=== PATIENT | male | born 1965 | race Caucasian/White ===

== ENCOUNTER 2018-10-23 01:27 | Inpatient (IN) | payer BC ==
[2018-10-23 01:31] VITALS: BMI 24.5
[2018-10-23] MEDS ORDERED: Sodium Chloride 0.9% 1,000 ML IV STA (02:40)
--- NOTE | 2018-10-23 02:40 | ED PDOC ---
Arrival/HPI - General Chief Complaint: Dizziness/Lightheaded Time Seen by Provider: 10/23/18 02:15 Historian: Patient - History of Present Illness Narrative History of Present Illness (Text): 10/23/18 02:38 Ian Park is a 52 year old male, with no significant past medical history, who presents to the Emergency department complaining of dizziness. Patient states he has been experiencing dizziness, described as room-spinning, since yesterday afternoon, worsening tonight. Patient notes he felt near- syncopal and had to lie down on the floor. Patient reports associated nausea and vomiting. Patient denies any fever, chills, chest pain, shortness of breath, diarrhea, urinary symptoms, back pain, neck pain, headache, or any other complaints. Symptom Onset: Gradual Symptom Course: Unchanged Activities at Onset: Light Context: Home Past Medical History - Provider Review Nursing Documentation Reviewed: Yes - Psychiatric Hx Substance Use: No - Anesthesia Hx Anesthesia: No Hx Anesthesia Reactions: No Hx Malignant Hyperthermia: No Family/Social History - Physician Review Nursing Documentation Reviewed: Yes Family/Social History: Unknown Family HX Smoking Status: Never Smoked Hx Alcohol Use: No Hx Substance Use: No Allergies/Home Meds Allergies/Adverse Reactions: Allergies No Known Allergies Allergy (Verified 10/23/18 01:31) Home Medications: Home Meds Medication Instructions Recorded Confirmed No Known Home Med 10/23/18 10/23/18 Review of Systems - Physician Review All systems were reviewed & negative as marked: Yes - Review of Systems Constitutional: Normal. absent: Fevers Eyes: Normal ENT: Normal Respiratory: Normal. absent: SOB, Cough Cardiovascular: Syncope (+near-syncopal). absent: Chest Pain Gastrointestinal: Nausea, Vomiting. absent: Diarrhea Genitourinary Male: Normal. absent: Dysuria, Frequency, Hematuria, Urinary Output Changes Musculoskeletal: Normal. absent: Back Pain, Neck Pain Skin: Normal. absent: Rash Neurological: Dizziness. absent: Headache Endocrine: Normal Hemo/Lymphatic: Normal Psychiatric: Normal Physical Exam Vital Signs Reviewed: Yes Vital Signs Temp Pulse Resp BP Pulse Ox 10/23/18 01:50 98.4 F 61 18 136/79 96 Temperature: Afebrile Blood Pressure: Normal Pulse: Regular Respiratory Rate: Normal Appearance: Positive for: Well-Appearing, Non-Toxic, Comfortable Pain Distress: None Mental Status: Positive for: Alert and Oriented X 3 - Systems Exam Head: Present: Atraumatic, Normocephalic Pupils: Present: PERRL Extroacular Muscles: Present: EOMI Conjunctiva: Present: Normal Ears: Present: Normal, NORMAL TM, Normal Canal. No: Erythema, TM Bulging, Fluid, TM Perf Mouth: Present: Moist Mucous Membranes Pharnyx: Present: Normal. No: ERYTHEMA, EXUDATE, TONSILS ENLARGED, Peritonsilar Swelling, Uvular Deviation, Muffled/Hoarse Voice, Strider, Soft Palate/Uvular Edema Nose (External): Present: Atraumatic Nose (Internal): Present: Normal Inspection Neck: Present: Normal Range of Motion. No: Meningeal Signs, MIDLINE TENDERNESS, Paraspinal Tenderness Respiratory/Chest: Present: Clear to Auscultation, Good Air Exchange. No: Respiratory Distress, Accessory Muscle Use Cardiovascular: Present: Regular Rate and Rhythm, Normal S1, S2. No: Murmurs Abdomen: No: Tenderness, Distention, Peritoneal Signs Back: Present: Normal Inspection. No: CVA Tenderness, Midline Tenderness, Paraspinal Tenderness Upper Extremity: Present: Normal Inspection. No: Cyanosis, Edema Lower Extremity: Present: Normal Inspection. No: Edema Neurological: Present: GCS=15, CN II-XII Intact, Speech Normal, Normal Sensory Function, Normal Cerebellar Funct, Memory Normal Skin: Present: Warm, Dry, Normal Color. No: Rashes Psychiatric: Present: Alert, Oriented x 3, Normal Insight, Normal Concentration Medical Decision Making ED Course and Treatment: 10/23/18 02:38 Impression: 52 year old male complaining of dizziness, near-syncope, and vomiting. Plan: -- CT Head w/o contrast -- EKG -- Chest X-ray -- Labs, cardiac enzymes -- IV fluids -- Antivert -- Zofran -- Pepcid -- Reassess and disposition Progress Notes: Reviewed EKG, NSR at [address]-segment elevations or depressions, no T-wave inversions, normal intervals. 10/23/18 03:30 Chest X-ray reviewed, shows no acute processes. 10/23/18 04:33 CT Head: Normal size of the ventricles and extra-axial spaces for the patient's age. Normal white matter tracts of the supratentorial brain. Normal basal ganglia and thalami. Normal brainstem. Normal cerebellum. There is no demonstrated extra-axial, intraparenchymal, or intraventricular hemorrhage. There are no findings of an acute ischemic infarction. Normal calvarium. There is no demonstrated fracture. Normal soft tissue structures. Normal visualized paranasal sinuses. IMPRESSION: Normal unenhanced CT scan of the brain. Electronically signed on Oct 23, 2018 3:55:15 AM EST by: Andre Weeks M.D., Certified by ABR, MSK, Neuroradiology 10/23/18 05:[address] Fay, who is aware and agrees with plan. Accepts pt in to her service. Pt will go to remote telemetry observation for intractable vertigo and near syncope. Requests Dr. Macias and Dr. Naqvi on consult - Lab Interpretations I have reviewed the lab results: Yes - RAD Interpretation Flight Engineer Instructor: ED Physician, Radiologist - EKG Interpretation Interpreted by ED Physician: Yes Type: 12 lead EKG - Scribe Statement The provider has reviewed the documentation as recorded by the Brendanibrosalind Andrea Provider Scribe Attestation: All medical record entries made by the Scribe were at my direction and personally dictated by me. I have reviewed the chart and agree that the record accurately reflects my personal performance of the history, physical exam, medical decision making, and the department course for this patient. I have also personally directed, reviewed, and agree with the discharge instructions and disposition. Disposition/Present on Arrival - Present on Arrival Any Indicators Present on Arrival: No History of DVT/PE: No History of Uncontrolled Diabetes: No Urinary Catheter: No History of Decub. Ulcer: No History Surgical Site Infection Following: None - Disposition Have Diagnosis and Disposition been Completed?: Yes Diagnosis: Near syncope, Vertigo Disposition: HOSPITALIZED Disposition Time: 06:09 Patient Plan: Observation Condition: STABLE Referrals: Bekah Fay MD [Primary Care Provider] - Follow up with primary Forms: [facility] ([place])
[2018-10-23 03:33] LABS: HEMOGLOBIN 14.5 g/dL (14.0-18.0); MEAN CELL VOLUME 95.2 fl (80.0-105.0); MEAN CORPUSCULAR HGB CONC 34.6 g/dl (31.0-37.0); MEAN PLATELET VOLUME 8.9 fl (7.0-11.0); RBC 4.4 10^6/uL (3.5-6.1); RED CELL DISTRIBUTION WIDTH 12.6 % (11.5-14.5); WHITE BLOOD COUNT 12.7 10^3/uL (4.5-11.0)
[2018-10-23 03:40] LABS: ALB/GLOB RATIO 1.1 (1.1-1.8); ALBUMIN 4.5 g/dL (3.0-4.8); ALT/SGPT 45 U/L (7-56); AST/SGOT 39 U/L (17-59); BLOOD UREA NITROGEN 18 mg/dL (7-21); CALCIUM 9.4 mg/dL (8.4-10.5); GFR NON-AFRICAN AMERICAN > 60
[2018-10-23 03:51] LABS: TROPONIN I < 0.01 ng/mL
[2018-10-23 04:40] LABS: CK-MB 3.1 ng/mL (0.0-3.6)
--- NOTE | 2018-10-23 08:46 | RAD ---
Date of service: 10/23/2018 PROCEDURE: CHEST RADIOGRAPH, 1 VIEW HISTORY: dizzy COMPARISON: None available. FINDINGS: LUNGS: The lungs are well inflated and clear. PLEURA: No pneumothorax or pleural effusion. CARDIOVASCULAR: The heart is normal in size. No aortic atherosclerotic calcifications present. OSSEOUS STRUCTURES: Within normal limits for the patient's age. VISUALIZED UPPER ABDOMEN: Normal. OTHER FINDINGS: None. IMPRESSION: No active pulmonary disease.
--- NOTE | 2018-10-23 10:15 | CT ---
Date of service: 10/23/2018 PROCEDURE: CT HEAD WITHOUT CONTRAST. HISTORY: Dizziness COMPARISON: None available. TECHNIQUE: Axial computed tomography images were obtained through the head/brain without intravenous contrast. Radiation dose: Total exam DLP = 870.66 mGy-cm. This CT exam was performed using one or more of the following dose reduction techniques: Automated exposure control, adjustment of the mA and/or kV according to patient size, and/or use of iterative reconstruction technique. FINDINGS: HEMORRHAGE: No intracranial hemorrhage. BRAIN: Carrion-white matter differentiation is preserved. There is no mass, mass effect or abnormal extra-axial fluid collection. There is no territorial infarction. The midline sagittal structures are normal. VENTRICLES: The ventricles are normal in size, shape and configuration. CALVARIUM: There is no calvarial fracture or extracranial soft tissue swelling. PARANASAL SINUSES: Predominantly clear. MASTOID AIR CELLS: Predominantly clear. OTHER FINDINGS: None. IMPRESSION: No acute intracranial abnormality. A preliminary report was provided by [employer].
--- NOTE | 2018-10-23 13:20 | CP.PCM.CON ---
History of Present Illness - History of Present Illness History of Present Illness: 52 y/o male with one day hx of dizziness/room spinning. Nausea. Denies change in hearing, denies prior hx. Pt feels dizziness has improved. Still dizzy with head movement to the left. Denies ear pain, denies recent URI Review of Systems - Constitutional Constitutional: As Per HPI - EENT Eyes: As Per HPI, Other (positve nystagmus to the right and upward/downward gaze) Nose/Mouth/Throat: As Per HPI - Cardiovascular Cardiovascular: As Per HPI - Respiratory Respiratory: As Per HPI - Gastrointestinal Gastrointestinal: As Per HPI - Genitourinary Genitourinary: As Per HPI - Reproductive: Male Reproductive:Male: As Per HPI - Musculoskeletal Musculoskeletal: As Per HPI - Integumentary Integumentary: As Per HPI - Neurological Neurological: As Per HPI - Psychiatric Psychiatric: As Per HPI - Endocrine Endocrine: As Per HPI - Hematologic/Lymphatic Hematologic: As Per HPI Past Patient History - Past Social History Smoking Status: Never Smoked - PSYCHIATRIC Hx Substance Use: No - SURGICAL HISTORY Hx Surgeries: No - ANESTHESIA Hx Anesthesia: No Hx Anesthesia Reactions: No Hx Malignant Hyperthermia: No Meds Allergies/Adverse Reactions: Allergies Allergy/AdvReac Type Severity Reaction Status Date / Time No Known Allergies Allergy Verified 10/23/18 01:31 - Medications Medications: Current Medications Acetaminophen (Tylenol 325mg Tab) 650 mg PO Q4H PRN PRN Reason: pain fever Famotidine (Pepcid) 40 mg PO HS MICKEY Meclizine HCl (Antivert) 25 mg PO TID MICKEY Ondansetron HCl (Zofran Inj) 4 mg IVP Q6 PRN PRN Reason: Nausea/Vomiting Physical Exam - Constitutional Appears: Well, Non-toxic - Head Exam Head Exam: ATRAUMATIC, NORMAL INSPECTION, NORMOCEPHALIC - Eye Exam Eye Exam: Nystagmus - ENT Exam ENT Exam: Mucous Membranes Moist, Normal Exam - Neck Exam Neck exam: Positive for: Normal Inspection - Respiratory Exam Respiratory Exam: NORMAL BREATHING PATTERN - Cardiovascular Exam Cardiovascular Exam: REGULAR RHYTHM - Neurological Exam Neurological exam: CN II-XII Intact, Oriented x3 Additional comments: Hallpike positive to left - Psychiatric Exam Psychiatric exam: Normal Affect, Normal Mood - Skin Skin Exam: Normal Color, Warm Results - Vital Signs Recent Vital Signs: Last Vital Signs Temp 98.4 F 10/23/18 01:50 Pulse 61 10/23/18 11:48 Resp 18 10/23/18 11:48 BP 145/85 10/23/18 11:48 Pulse Ox 96 10/23/18 11:48 - Labs Result Diagrams: 10/23/18 03:05 10/23/18 03:05 Labs: Laboratory Results - last 24 hr 10/23/18 10/23/18 03:05 03:05 WBC 12.7 H RBC 4.40 Hgb 14.5 Hct 41.9 L MCV 95.2 MCH 33.0 MCHC 34.6 RDW 12.6 Plt Count 193 MPV 8.9 Sodium 140 Potassium 4.1 Chloride 106 Carbon Dioxide 27 Anion Gap 11 BUN 18 Creatinine 0.8 Est GFR ( Amer) > 60 Est GFR (Non-Af Amer) > 60 Random Glucose 127 H Calcium 9.4 Total Bilirubin 0.5 AST 39 ALT 45 Alkaline Phosphatase 49 Lactate Dehydrogenase 542 Total Creatine Kinase 345 H CK-MB (CK-2) 3.1 CK-MB (CK-2) % Cancelled Troponin I < 0.01 Total Protein 8.5 H Albumin 4.5 Globulin 3.9 Albumin/Globulin Ratio 1.1 - Impressions Impression: CT wnl today Assessment & Plan (1) Near syncope Status: Acute (2) Vertigo Status: Acute (3) Labyrinthine dysfunction, left ear Status: Acute (4) Benign paroxysmal positional vertigo of left ear Status: Acute - Assessment and Plan (Free Text) Plan: meclizine and steroid treatment for presumed acute left viral labyrinthine dys function. F/u for audio/vng out patient. Continue meclizine rx with steroid upon discharge. Will reeval at your consent. - Date & Time Date: 10/23/18 Time: 13:00
[2018-10-23] MEDS ORDERED: Dexamethasone 4 mg/1 ml IVP STA (14:16)
--- NOTE | 2018-10-23 14:19 | CP.PCM.PCO ---
Assessment & Plan - Assessment and Plan (Free Text) Assessment: NEURO COMMUNICATION NOTE: IMPRESSION: ACUTE LABYRINTHINE DYSFUNCTION WITH BPPV 1/ C/W MECLIZINE 25 MG PO BID. 2. DEXAMETHSONE 4 MG IVP FOR ACUTE ONSET DIZZINESS. 3. OUTPT VESTIBULAR THERAPY AND F/W ENT. THANKS. CARLOS MICHELE.
--- NOTE | 2018-10-23 19:24 | CON ---
DATE: 10/23/2018 SUBJECTIVE: This is a 52-year-old male with past medical history, not significant, came here with the complaint of dizziness and described dizziness as spinning of the room, nausea, vomited many times yesterday and no facial asymmetry, called to evaluate the patient's past medical history not significant on examination. ALLERGY: NO KNOWN DRUG ALLERGY. REVIEW OF SYSTEM: A 10-point review of system was negative except dizziness. PHYSICAL EXAMINATION: VITAL SIGNS: Blood pressure 136/79. HEENT: Normocephalic and atraumatic. NECK: Supple. NEUROLOGIC: Awake, alert and oriented x3. Cranial nerve II through XII were tested. Pupil reactive. EOM intact. Visual mistry full. No facial asymmetry. Tongue midline. MOTOR EXAMINATION: Moves all the extremity equally. Tone normal. Deep tendon reflexes 1+. Both plantars are downgoing. Sensory appears intact. Cerebellar gait deferred. IMPRESSION: Vertigo, rule out vertebrobasilar ischemia, benign positional vertigo. CAT scan of the head was done which was reported negative and workup in progress. The patient is getting Antivert and Zofran. We will follow up. Markell Macias MD
--- NOTE | 2018-10-23 20:37 | CARD ---
APPROVED REPORT Date of service: 10/23/2018 EKG Measurement Heart [id number] NM [id number] [id number] <Conclusion> Normal sinus rhythm Normal ECG
[2018-10-23 23:31] VITALS: RESP 20
[2018-10-23] MEDS ORDERED: Pneumococcal 23-Valent Vaccine IM ONE (23:31)
[2018-10-23] MEDS ORDERED: Influenza Vaccine 60 mcg/0.5 mL SYR (4YR UP) IM ONE (23:31)
--- NOTE | 2018-10-24 01:35 | HP ---
DATE OF EXAM: 10/23/2018 The patient is a 52-year-old male. The patient was seen and examined at the bedside on 10/23/2018. CHIEF COMPLAINT: Dizziness, lightheadedness, near passing out. HISTORY OF PRESENT ILLNESS: Mr. Ian Cross is a 52-year-old male with no significant past medical history, came to the Emergency Department complaining of dizziness. The patient states that he has been experiencing dizziness as that room is spinning since day before admission, worsening last night. The patient noticed that left near syncope and had lie down on the floor. The patient reports associated nausea and vomiting. Denies any fever, chills, chest pain, shortness of breath, diarrhea, urinary symptoms, back pain, neck pain, headaches, dizziness or other complaints. PAST MEDICAL HISTORY: Not significant. FAMILY HISTORY: Father and mother, noncontributory. HABITS: Never smoked. No drugs. No ethanol. ALLERGIES: THE PATIENT IS NOT ALLERGIC WITH ANY MEDICATIONS. HOME MEDICATIONS: Denied. REVIEW OF SYSTEMS: The patient was seen and examined at the bedside in his room. He is lying down comfortably. No fever. No chills. No shortness of breath. No coughing. Having feeling of still syncope and passing out on movement. He is still having dizzy. No chest pain. No nausea. No vomiting at this moment. No dysuria, frequency or hematuria. No change in urinary output. No back pain, neck pain, no rash or swelling of the legs. PHYSICAL EXAMINATION VITAL SIGNS: Temperature 98.4, pulse 61, respiratory rate 18, blood pressure 136/79, pulse oximetry 96. HEENT: Head; normocephalic, atraumatic. Eyes; PERRLA. Extraocular muscles are intact. Conjunctivae clear. Nose patent. Mucous membranes moist. NECK: Supple. No carotid bruits. No JVD or thyromegaly. CHEST: Bilaterally symmetrical. HEART: S1, S2 positive. LUNGS: Clear to auscultation. ABDOMEN: Soft. Bowel sounds present. No organomegaly. EXTREMITIES: No edema. No cyanosis. NEUROLOGIC: The patient is awake and alert. Moving all four extremities. No focal deficits. LABORATORY DATA: White blood cell is 12.7, hemoglobin 14.5, hematocrit 41.9, platelets 193. Sodium 140, potassium 4.1, BUN 18, creatinine 0.8, glucose 127. AST 39 and ALT 45. Creatine kinase 345. ASSESSMENT AND PLAN: Mr. Ian Cross is a 52-year-old male with leukocytosis, hyperglycemia, came with dizziness, near syncope, rule out acute labyrinthine dysfunction with benign paroxysmal positional vertigo. According to neurologist, Dr. Shan Macias, continue meclizine that was started by me last night, dexamethasone 4 mg IV for acute onset of dizziness as per neurologist, outpatient vestibular therapy and follow with ENT, ENT is on the case. Seen by Dr. Dylon Wong, neurologist. The patient denies any upper respiratory tract infection, near syncope, vertigo, labyrinthine dysfunction left ear, benign paroxysmal positional vertigo of the left ear, rule out left viral labyrinthine dysfunction, need followup with audio/VNG outpatient. Discussion done with the patient. CAT scan of the head was done. Reviewed by me. No acute intracranial abnormalities. Chest x-ray is reviewed by me. No acute pulmonary disease. We will continue present treatment. Repeat labs. We will follow up. Bekah Fay MD
[2018-10-24 07:55] LABS: IRON 108 ug/dL (45-180)
[2018-10-24 07:56] LABS: ALB/GLOB RATIO 1.1 (1.1-1.8); ALBUMIN 4.1 g/dL (3.0-4.8)
[2018-10-24 08:07] LABS: % IRON SATURATION 38 % (20-55); TOTAL IRON BINDING CAPACITY 288 ug/dL (261-462)
[2018-10-24 13:55] LABS: FOLATE 9.2 ng/mL
[2018-10-25 07:27] LABS: HEMOGLOBIN 13.7 g/dL (14.0-18.0); MEAN CELL VOLUME 96.3 fl (80.0-105.0); MEAN CORPUSCULAR HEMOGLOBIN 31.4 pg (25.0-35.0); MEAN CORPUSCULAR HGB CONC 32.6 g/dl (31.0-37.0); MEAN PLATELET VOLUME 9.1 fl (7.0-11.0); RBC 4.36 10^6/uL (3.5-6.1); RED CELL DISTRIBUTION WIDTH 12.7 % (11.5-14.5); WHITE BLOOD COUNT 7.4 10^3/uL (4.5-11.0)
[2018-10-25 07:38] LABS: BLOOD UREA NITROGEN 19 mg/dL (7-21); CALCIUM 8.5 mg/dL (8.4-10.5); GFR NON-AFRICAN AMERICAN > 60
[2018-10-25 07:43] VITALS: BP 120/84; PULSE 80; TEMP 97.9; O2SAT 98
--- NOTE | 2018-10-26 15:58 | PN ---
DATE: 10/24/2018 SUBJECTIVE: The patient was seen and examined at the bedside on 10/24/2018 and looking comfortable. No fever, no chills. No nausea, vomiting, or diarrhea. No headache, but still dizzy, sometimes lightheadedness. PHYSICAL EXAMINATION: VITAL SIGNS: Temperature 98.6, pulse 69, blood pressure 123/84, respiratory rate 20. HEENT: Head normocephalic and atraumatic. Eyes PERRLA. Extraocular movements intact. Conjunctivae clear. Nose patent. Mucous membrane moist. NECK: Supple. No carotid bruit. No JVD or thyromegaly. CHEST: Bilaterally symmetrical. HEART: S1, S2 positive. LUNGS: Clear to auscultation. ABDOMEN: Soft. Bowel sounds present. No organomegaly. EXTREMITIES: No edema. No cyanosis. NEUROLOGIC: The patient awake, alert. Moving all four extremities. No focal deficit. MEDICATIONS: Antivert, Pepcid, Tylenol, Zofran. LABORATORY DATA: White blood cell is 12.7, hemoglobin 14.5, hematocrit 41.9, platelets 193. Iron 108, total binding capacity 88, saturation 38, ___ 220. ASSESSMENT AND PLAN: Mr. Ian Cross is a 52-year-old male with hypercholesterolemia, history of leukocytosis, known significant past medical history, came with dizziness, room is spinning, nausea, seen by the neurologist and ENT, near syncope, vertigo, labyrinthine dysfunction left ear especially, benign paroxysmal positional vertigo of the left ear. Meclizine and steroid are given, rule out acute left viral labyrinthine dysfunction. Follow up for audio/videonystagmography. The patient to continue Meclizine and steroids and repeat labs. We will followup. Bekah Fay MD
== END 2018-10-25 13:13 | disposition home or self-care (01) | DRG 149 ==
LOC: ED 01:27 → ERH 06:01 → OBSVTOIN 08:40 → ERH 13:49 → 5RSO 14:21
PROVIDERS: ADMIT Internal Medicine; ATTEND Internal Medicine
DX: H81.12 Benign paroxysmal vertigo, left ear (principal); R73.9 Hyperglycemia, unspecified; R55 Syncope and collapse; E78.00 Pure hypercholesterolemia, unspecified; D72.829 Elevated white blood cell count, unspecified